=== PATIENT | male | born 1995 | race Caucasian/White ===

== ENCOUNTER → 2020-04-06 | Outpatient (REF) ==
--- NOTE | 2020-04-06 14:56 | Diagnostic Imaging Report ---
INDICATION: Pain status post injury. COMPARISON: None. FINDINGS: Three views of the right shoulder were obtained. There is no fracture, dislocation, or other acute bony abnormality identified. The soft tissues appear unremarkable. No radiopaque foreign bodies identified. The visualized portions of the right lung are clear. IMPRESSION: No acute fractures or dislocations of the right shoulder. Dictated by: Dictated on workstation # [id number]
== END ==
LOC: OCC 14:23
PROVIDERS: ATTEND Family Medicine
DX: M25.511 Pain in right shoulder (principal)
CPT/HCPCS: 73030

== ENCOUNTER 2020-10-28 23:35 | Emergency (ER) | payer BC, OTHER ==
[~2020-10-28] VITALS: Ht 180 cm; Wt 81.6 kg
[2020-10-29] MEDS ORDERED: LACTATED RINGERS 1,000 ML IV ONE
--- NOTE | 2020-10-29 00:10 | ED GI ---
General Chief Complaint: Abdominal/GI Problems Stated Complaint: ABD PAIN/BLOOD IN STOOL Nursing Triage Note: ruq abdominal cramping today. bloody diarrhea. Source of Information: Patient Exam Limitations: No Limitations History of Present Illness Date Seen by Provider: Oct 28, 2020 Time Seen by Provider: 23:45 Initial Comments This 25-year-old young man presents to the emergency room with complaints of waxing and waning abdominal pain throughout the last 24 hours with progressive diarrhea that has become bloody in the last few hours. Pain tends to be worse with bowel movements. He denies any identifiable sources for infectious diarrhea such as dirty water, cattle, poultry, reptiles, diaper changes, etc. He is afebrile but states he felt chilled last night. He denies any personal or family history of inflammatory bowel disease. Denies nausea or vomiting. Allergies and Home Medications Allergies Coded Allergies: No Known Drug Allergies (Unverified , 10/28/20) Patient Home Medication List Home Medication List Reviewed: Yes Hydrocodone/Acetaminophen (Hydrocodone-Acetamin 5-325 mg) 1 Each Tablet, 1 TAB PO Q4H PRN for PAIN-MODERATE (5-7) Prescribed by: MATILDA PATEL on 10/29/20 0103 Hyoscyamine Sulfate (Levsin-Sl) 0.125 Mg Tab.subl, 1-2 TAB SL Q4H PRN for CRAMPS Prescribed by: MATILDA PATEL on 10/29/20 0102 Review of Systems Review of Systems Constitutional: see HPI EENTM: No Symptoms Reported Respiratory: No Symptoms Reported Cardiovascular: No Symptoms Reported Gastrointestinal: See HPI Genitourinary: No Symptoms Reported Musculoskeletal: no symptoms reported Skin: no symptoms reported Psychiatric/Neurological: No Symptoms Reported Endocrine: No Symptoms Reported Hematologic/Lymphatic: No Symptoms Reported Past [id number] Hx Patient Social History Tobacco Use?: Yes Substance use?: No Alcohol Use?: Yes Alcohol Frequency: Once in a while Pt feels they are or have been: No Past Medical History Surgery/Hospitalization HX: abdominal as Surgeries: Yes Abdominal (Possibly volvulus by description) Respiratory: No Cardiac: No Neurological: No Reproductive Disorders: No Genitourinary: No Gastrointestinal: Yes (Abdominal surgery as an ) Musculoskeletal: No Endocrine: No HEENT: No Cancer: No Psychosocial: No Physical Exam Vital Signs Vital Signs - First Documented 10/28/20 23:41 Temp 36.3 Pulse 81 Resp 16 B/P (MAP) 146/91 (109) Pulse Ox 96 O2 Delivery Room Air Capillary Refill : Less Than 3 Seconds Height/Weight/BMI Height: '" Weight: lbs. oz. kg; 25.00 BMI Method: General Appearance: WD/WN, mild distress HEENT: PERRL/EOMI, normal ENT inspection, pharynx normal Neck: normal inspection Respiratory: lungs clear, normal breath sounds, no respiratory distress, no accessory muscle use Cardiovascular: regular rate, rhythm, no edema, no murmur Gastrointestinal: normal bowel sounds, soft; No distended; tenderness (Generalized but more prominent on the right) Rectal: normal rectal tone, other (Dark blood around the anus. No ar bleeding. 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, no motor/sensory deficits, alert, normal mood/affect, oriented x 3 Skin: normal color, warm/dry Progress/Results/Core Measures Results/Orders Lab Results Laboratory Tests Test 10/28/20 23:45 10/28/20 23:57 Range/Units Urine Color YELLOW Urine Clarity CLEAR Urine pH 5.5 5-9 Urine Specific [place] >=1.030 1.016-1.022 Urine Protein NEGATIVE NEGATIVE Urine Glucose (UA) NEGATIVE NEGATIVE Urine Ketones NEGATIVE NEGATIVE Urine Nitrite NEGATIVE NEGATIVE Urine Bilirubin NEGATIVE NEGATIVE Urine Urobilinogen 0.2 < = 1.0 MG/DL Urine Leukocyte Esterase NEGATIVE NEGATIVE Urine RBC (Auto) NEGATIVE NEGATIVE Urine RBC NONE /HPF Urine WBC RARE /HPF Urine Squamous Epithelial Cells NONE /HPF Urine Crystals NONE /LPF Urine Bacteria TRACE /HPF Urine Casts NONE /LPF Urine Mucus SMALL H /LPF Urine Culture Indicated NO White Blood Count 9.0 4.3-11.0 10^3/uL Red Blood Count 4.86 4.30-5.52 10^6/uL Hemoglobin 15.5 13.3-17.7 g/dL Hematocrit 46 40-54 % Mean Corpuscular Volume 94 80-99 fL Mean Corpuscular Hemoglobin 32 25-34 pg Mean Corpuscular Hemoglobin Concent 34 32-36 g/dL Red Cell Distribution Width 12.7 10.0-14.5 % Platelet Count 205 130-400 10^3/uL Mean Platelet Volume 11.1 9.0-12.2 fL Immature Granulocyte % (Auto) 1 % Neutrophils (%) (Auto) 73 42-75 % Lymphocytes (%) (Auto) 16 12-44 % Monocytes (%) (Auto) 10 0-12 % Eosinophils (%) (Auto) 1 0-10 % Basophils (%) (Auto) 0 0-10 % Neutrophils # (Auto) 6.6 1.8-7.8 10^3/uL Lymphocytes # (Auto) 1.4 1.0-4.0 10^3/uL Monocytes # (Auto) 0.9 0.0-1.0 10^3/uL Eosinophils # (Auto) 0.1 0.0-0.3 10^3/uL Basophils # (Auto) 0.0 0.0-0.1 10^3/uL Immature Granulocyte # (Auto) 0.1 0.0-0.1 10^3/uL Prothrombin Time 13.7 12.2-14.7 SEC INR Comment 1.0 0.8-1.4 Activated Partial Thromboplast Time 33 24-35 SEC Sodium Level 135 135-145 MMOL/L Potassium Level 3.6 3.6-5.0 MMOL/L Chloride Level 101 98-107 MMOL/L Carbon Dioxide Level 22 21-32 MMOL/L Anion Gap 12 5-14 MMOL/L Blood Urea Nitrogen 10 7-18 MG/DL Creatinine 1.02 0.60-1.30 MG/DL Estimat Glomerular Filtration Rate 89 BUN/Creatinine Ratio 10 Glucose Level 98 70-105 MG/DL Calcium Level 9.0 8.5-10.1 MG/DL Corrected Calcium 8.8 8.5-10.1 MG/DL Magnesium Level 1.6 1.6-2.4 MG/DL Total Bilirubin 0.5 0.1-1.0 MG/DL Aspartate Amino Transf (AST/SGOT) 19 5-34 U/L Alanine Aminotransferase (ALT/SGPT) 25 0-55 U/L Alkaline Phosphatase 53 40-136 U/L C-Reactive Protein High Sensitivity 2.74 H 0.00-0.50 MG/DL Total Protein 7.5 6.4-8.2 GM/DL Albumin 4.3 3.2-4.5 GM/DL Lipase 12 8-78 U/L Micro Results Microbiology 10/29/20 Fecal Leukocyte Stain - Final, Resulted 10/29/20 Stool Culture - Preliminary, Resulted My Orders Orders - MATILDA LIAO MD Ua Culture If Indicated (10/28/20 23:45) Cbc With Automated Diff (10/28/20 23:57) Comprehensive Metabolic Panel (10/28/20 23:57) Hs C Reactive Protein (10/28/20 23:57) Lipase (10/28/20 23:57) Magnesium (10/28/20 23:57) Protime With Inr (10/28/20 23:57) Partial Thromboplastin Time (10/28/20 23:57) Ed Iv/Invasive Line Start (10/28/20 23:57) Lactated Ringers (Lr 1000 Ml Iv Solution (10/29/20 00:00) Stool Culture (10/29/20 00:44) Fecal Wbc (10/29/20 00:44) Medications Given in ED Vital Signs/I&O 10/28/20 10/29/20 23:41 01:13 Temp 36.3 36.4 Pulse 81 80 Resp 16 16 B/P (MAP) 146/91 (109) 142/88 Pulse Ox 96 96 O2 Delivery Room Air Room Air Blood Pressure Mean: 109 Progress Progress Note #1: Time: 00:09 Progress Note Patient was seen and examined. IV fluids were initiated. Patient declines medication for pain or nausea at this time. Progress Note #2: Progress Note Work-up was relatively unremarkable. Stool specimen was sent for culture. Vital signs were stable. Symptoms were tolerable. Patient was discharged with return precautions and emphasis on follow-up in the outpatient setting for further evaluation and colonoscopy. Departure Impression Primary Impression: Hematochezia Additional Impression: Right sided abdominal pain Disposition: 01 HOME, SELF-CARE Condition: Stable Departure-Patient Inst. Decision time for Depature: 00:58 Referrals: NO,LOCAL PHYSICIAN (PCP/Family) Primary Care Physician Patient Instructions: Bloody Stools, Adult ED, Acute Pain, Adult Add. Discharge Instructions: Adhere to a clear liquid diet and drink plenty of clear liquids for the next 24 hours. If diarrhea and bleeding resolve, then gradually advance diet with small quantities of bland food as tolerated. You may use Tylenol (acetaminophen) up to 1000 mg every 6 hours as needed for mild pain. Use hydrocodone as prescribed for more intense pain. Use Levsin (hyoscyamine) as prescribed for cramping and diarrhea. Follow-up with your primary care provider soon as possible for review of stool cultures and further evaluation. It is very important that you have a colonoscopy as soon as possible to evaluate for possible sources of your bleeding. Call with any questions or concerns. Return to the ER if you have worsening symptoms or develop new symptoms such as fever, vomiting, etc. All discharge instructions reviewed with patient and/or family. Voiced understanding. Scripts Hydrocodone/Acetaminophen (Hydrocodone-Acetamin 5-325 mg) 1 Each Tablet 1 TAB PO Q4H PRN for PAIN-MODERATE (5-7), #10 TAB Prov: MATILDA LIAO MD 10/29/20 Hyoscyamine Sulfate (Levsin-Sl) 0.125 Mg Tab.subl 1-2 TAB SL Q4H PRN for CRAMPS, #10 TAB 0 Refills For cramping or diarrhea Prov: MATILDA LIAO MD 10/29/20 Work/School Note: Work Release Form Date Seen in the Emergency Department: Oct 29, 2020 Return to Work: Oct 30, 2020 Restrictions: Return-No Fever (24hrs), Return-No Vomiting(24hrs) Other Restrictions Listed Below: May return to work 10/30 if active diarrhea stops. MATILDA LIAO MD Oct 29, 2020 00:10
[2020-10-29 00:19] LABS: BASOPHILS % (AUTO) 0 % (0-10); EOSINOPHILS # (AUTO) 0.1 10^3/uL (0.0-0.3); EOSINOPHILS % (AUTO) 1 % (0-10); HEMATOCRIT 46 % (40-54); HEMOGLOBIN 15.5 g/dL (13.3-17.7); LYMPHOCYTES # (AUTO) 1.4 10^3/uL (1.0-4.0); LYMPHOCYTES % (AUTO) 16 % (12-44); MEAN CORPUSCULAR HEMOGLOBIN 32 pg (25-34); MEAN CORPUSCULAR HGB CONC 34 g/dL (32-36); MEAN CORPUSCULAR VOLUME 94 fL (80-99); MEAN PLATELET VOLUME 11.1 fL (9.0-12.2); MONOCYTES # (AUTO) 0.9 10^3/uL (0.0-1.0); MONOCYTES % (AUTO) 10 % (0-12); NEUTROPHILS # (AUTO) 6.6 10^3/uL (1.8-7.8); NEUTROPHILS % (AUTO) 73 % (42-75); PLATELET COUNT 205 10^3/uL (130-400)
[2020-10-29 00:27] LABS: ALBUMIN 4.3 GM/DL (3.2-4.5); POTASSIUM 3.6 MMOL/L (3.6-5.0)
[2020-10-29 00:29] LABS: BILIRUBIN,URINE NEGATIVE (NEGATIVE); CLARITY,URINE CLEAR; COLOR,URINE YELLOW; GLUCOSE, URINE (UA) NEGATIVE (NEGATIVE); KETONES,URINE NEGATIVE (NEGATIVE); LEUKOCYTE ESTERASE ,URINE NEGATIVE (NEGATIVE); NITRITE,URINE NEGATIVE (NEGATIVE); PH,URINE 5.5 (5-9); PROTEIN,URINE NEGATIVE (NEGATIVE)
[2020-10-29 00:30] LABS: TOTAL PROTEIN 7.5 GM/DL (6.4-8.2)
[2020-10-29 00:31] LABS: BILIRUBIN,TOTAL 0.5 MG/DL (0.1-1.0); PROTHROMBIN TIME PATIENT 13.7 SEC (12.2-14.7)
[2020-10-29 00:33] LABS: CREATININE SERUM 1.02 MG/DL (0.60-1.30)
[2020-10-29 00:36] LABS: MAGNESIUM 1.6 MG/DL (1.6-2.4)
[2020-10-29 00:38] LABS: BACTERIA,URINE TRACE /HPF; WBC,URINE RARE /HPF
[2020-10-29] MEDS ORDERED: ACHD5005 PO (01:02)
[2020-10-29] MEDS ORDERED: HYOS0.1283 SL (01:02)
[2020-10-29 01:13] VITALS: BP 142/88
== END 2020-10-29 01:15 | disposition home or self-care (01) ==
LOC: EDUNIT# 23:35 → ER 23:39
DX: K92.1 Melena (principal)
CPT/HCPCS: 36415; 80053; 81000; 83690; 83735; 85025; 85610; 85730; 86141; 87015; 87045; 87046; 87077; 87899; 89055